=== PATIENT | male | born 1960 | race Caucasian/White ===

== ENCOUNTER → 2021-01-09 | Outpatient (CLI) | payer OTHER ==
--- NOTE | 2021-01-09 16:24 | KCIC ---
EXAM: Cervical spine MRI without contrast. HISTORY: Radiculopathy. TECHNIQUE: Multiplanar, multisequence magnetic resonance imaging of the cervical spine was performed without contrast. COMPARISON: None. FINDINGS: There is no significant listhesis. There is multilevel endplate remodeling and osteophytosi s. There is no suspicious osseous lesion. There is no acute or subacute fracture. There is deformatio n of the cervical spinal cord at multiple levels due to central canal stenosis. There is no convincin g spinal cord signal abnormality to suggest myelomalacia or edema. At C2-C3, there is a disc bulge and left posterior lateral predominant endplate remodeling. There is mild left foraminal stenosis. At C3-C4, there is a shallow broad-based right paracentral to lateral recess disc protrusion superimp osed on a disc bulge and endplate remodeling. There is moderate bilateral facet arthropathy. There is uncovertebral arthropathy. There is mild left foraminal stenosis. There is deformation of the spinal cord and moderate central canal stenosis measuring 7.9 mm in anterior posterior dimension. At C4-C5, there is a right paracentral to lateral recess disc protrusion with slight superior extrusi on superimposed on a disc bulge and endplate osteophytosis. There is moderate bilateral facet arthrop athy. There is uncovertebral arthropathy. There is moderate to severe bilateral foraminal stenosis. T here is deformation of the spinal cord and moderate central canal stenosis measuring 7.3 mm in leilani posterior dimension. At C5-C6, there is a left paracentral disc protrusion superimposed on a disc bulge and endplate osteo phytosis. There is moderate pleural facet arthropathy. There is uncovertebral arthropathy. There is m oderate bilateral foraminal stenosis. There is deformation of the spinal cord and moderate to severe left predominant central canal stenosis measuring 6.4 mm in anterior posterior dimension. At C6-C7, there is a right paracentral to lateral recess disc protrusion and superior extrusion super imposed on a disc bulge and endplate osteophytosis. There is mild right and moderate left facet arthr opathy. There is uncovertebral arthropathy. There is moderate right and mild left foraminal stenosis. There is deformation of the spinal cord and moderate central canal stenosis measuring 7.9 mm in ante rior posterior dimension. IMPRESSION: 1. Multilevel degenerative change involving the cervical spine, described in detail above. This resul ts in significant foraminal and central canal stenosis at the aforementioned levels. 2. 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 There is no convincing spinal cord signal abnormality to suggest edema or myelomalacia. Electronically signed by: Alycia Farr MD (01/09/2021 4:21 PM) [id number]
== END ==
LOC: KCIC MRI 15:02
PROVIDERS: ATTEND Chiropractor
DX: M47.22 Other spondylosis with radiculopathy, cervical region (principal); M50.11 Cervical disc disorder with radiculopathy, high cervical region; M48.02 Spinal stenosis, cervical region; M25.78 Osteophyte, vertebrae
CPT/HCPCS: 72141